=== PATIENT | female | born 1970 | race Caucasian/White ===

== ENCOUNTER → 2023-11-14 13:26 | Outpatient (REF) | payer MEDICARE, SELFPAY | LOC: HWRAD 13:26 | PROVIDERS: ATTENDING PHYSICIAN Internal Medicine | DX: E04.2 Nontoxic multinodular goiter (principal) | CPT/HCPCS: 76536 ==

== ENCOUNTER → 2023-12-05 13:08 | Outpatient (REF) | payer MEDICARE, SELFPAY ==
[2023-12-05 13:49] VITALS: BP 118/84; BP_SYST 88
== END ==
LOC: RADI 13:08
PROVIDERS: ATTENDING PHYSICIAN Internal Medicine
DX: E04.1 Nontoxic single thyroid nodule (principal)
CPT/HCPCS: 88173; 10005

== ENCOUNTER → 2024-08-19 08:58 | Outpatient (REF) | payer MEDICARE, SELFPAY | LOC: HWRAD 08:58 | PROVIDERS: ATTENDING PHYSICIAN Internal Medicine Gastroenterology; FAMILY PHYSICIAN Internal Medicine | DX: E66.01 Morbid (severe) obesity due to excess calories (principal) | CPT/HCPCS: 76700 ==

== ENCOUNTER 2024-08-22 06:27 | Day surgery (SDC) | payer MEDICARE, SELFPAY ==
[2024-08-22 11:20] VITALS: BMI 50.8
[2024-08-22 11:21] VITALS: BMI 50.8
[2024-08-22 11:35] VITALS: BP 106/73
[2024-08-22 13:42] VITALS: BP 108/76
== END 2024-08-22 14:11 | disposition home or self-care (01) ==
LOC: GI 06:27
PROVIDERS: ATTENDING PHYSICIAN Internal Medicine Gastroenterology
DX: Z12.11 Encounter for screening for malignant neoplasm of colon (principal); K57.30 Diverticulosis of large intestine without perforation or abscess without bleeding; Z80.0 Family history of malignant neoplasm of digestive organs; K64.0 First degree hemorrhoids; D12.2 Benign neoplasm of ascending colon; D12.3 Benign neoplasm of transverse colon
CPT/HCPCS: 45385; 45380; 88305

== ENCOUNTER → 2024-12-08 09:16 | Outpatient (REF) | payer MEDICARE, SELFPAY ==
[2024-12-08 10:18] LABS: % Basophils 0.9 % (0-2); % Eosinophils 3.3 % (0-6); % Immature Granulocytes 0.5 % (0-0.5); % Lymphocytes 29.7 % (20.5-51.1); % Monocytes 6.3 % (1.7-9.3); % Neutrophils 59.3 % (42.2-75.2); Absolute Basophils 0.1 10^3/uL (0-0.2); Absolute Eosinophils 0.3 10^3/uL (0-0.7); Absolute Lymphocytes 2.3 10^3/uL (1.2-3.4); Absolute Monocytes 0.5 10^3/uL (0.1-0.6); Absolute Neutrophils 4.5 10^3/uL (1.4-6.5); Hematocrit 38.7 % (37.0-47.0); Hemoglobin 11.6 g/dL (12.0-16.0); Mean Corpuscular Volume 80.1 fL (81.0-99.0); Mean Platelet Volume 9.7 fL (7.4-10.4); Nucleated Red Blood Cells % 0 %; Platelet Count 362 10^3/uL (130-400); Red Blood Cell Count 4.83 10^6/uL (4.20-5.40); Red Cell Dist. Width 16.7 % (11.5-14.5); White Blood Cell Count 7.6 10^3/uL (4.8-10.8)
[2024-12-08 11:00] LABS: ALT (SGPT) 25 U/L (0-35); AST (SGOT) 26 U/L (14-36); Albumin 4.1 g/dl (3.5-5.0); Alkaline Phosphatase 93 U/L (38-126); Blood Urea Nitrogen 19 mg/dl (7-17); Calcium 10.1 mg/dl (8.4-10.2); Carbon Dioxide 25 mmol/L (22-30); Chloride 102 mmol/L (98-107); Direct Bilirubin 0.2 mg/dl (0.0-0.4); Glucose 100 mg/dl (70-99); HDL Cholesterol 61 mg/dl; Iron 54 ug/dl (37-170); LDL Cholesterol, Calculated 113 mg/dl; Potassium 4.3 mmol/L (3.5-5.1); Sodium 137 mmol/L (135-145); Total Bilirubin 0.7 mg/dl (0.2-1.3); Total Cholesterol 198 mg/dl (50-199); Total Protein 6.9 g/dl (6.3-8.2); Triglyceride 120 mg/dl (10-149); Very Low Density Lipoprotein 24 mg/dl (0-30); eGFR 58.97
[2024-12-08 11:06] LABS: IgA 231 mg/dl (70-400); IgG 893 mg/dl (700-1600); IgM 131 mg/dl (40-230)
[2024-12-08 11:13] LABS: Percent Saturation 14 % (20-50); Total Iron Binding Capacity 375 ug/dl (265-497)
[2024-12-08 11:33] LABS: Ferritin 8.3 ng/ml (11.1-264.0)
[2024-12-08 21:44] LABS: Hepatitis A Antibody, Total Negative (Negative); Hepatitis B Core Ab, Total Negative (Negative); Hepatitis C Antibody Negative (Negative)
[2024-12-09 00:48] LABS: Hepatitis B Surface Antibody Negative
[2024-12-09 18:42] LABS: Alpha-1-Antitrypsin 172 mg/dL (90-200); Ceruloplasmin 32 mg/dL (16-45)
[2024-12-09 22:24] LABS: LKM-1 Ab (IgG) 0.7 U (0.0-24.9)
[2024-12-10 02:43] LABS: Mitochondrial M2 Ab, IgG 5.7 Units (0.0-24.9)
[2024-12-10 02:46] LABS: ANA, IgG Reflex to HEp-2 None Detected (None Detected)
[2024-12-10 11:22] LABS: F-Actin Antibody IgG 3 Units (0-19)
[2024-12-11 08:26] LABS: tTG IgA Antibody <1.02 FLU (0.00-4.99)
== END ==
LOC: REG 09:16
PROVIDERS: ATTENDING PHYSICIAN Internal Medicine Gastroenterology; FAMILY PHYSICIAN Internal Medicine
DX: R53.83 Other fatigue (principal); Z00.00 Encounter for general adult medical examination without abnormal findings; E78.5 Hyperlipidemia, unspecified; K76.0 Fatty (change of) liver, not elsewhere classified
CPT/HCPCS: 36415; 80053; 80061; 82103; 82248; 82390; 82728; 82784; 83540; 83550; 84443; 85025; 86015; 86038; 86364; 86376; 86381; 86704; 86706; 86708; 86803

== ENCOUNTER 2024-12-24 06:19 | Day surgery (SDC) | payer MEDICARE, SELFPAY ==
[2024-12-24 13:50] VITALS: BMI 52.4
[2024-12-24 13:55] VITALS: BP 118/61
[2024-12-24 14:12] VITALS: BMI 52.4
[2024-12-24 15:57] VITALS: BP 110/90
[2024-12-24 16:00] VITALS: BP 108/87
[2024-12-24 16:15] VITALS: BP 105/73
[2024-12-24 16:25] VITALS: BP 123/79
== END 2024-12-24 16:50 | disposition home or self-care (01) ==
LOC: SDS 06:19
PROVIDERS: ATTENDING PHYSICIAN Internal Medicine Gastroenterology
DX: K29.70 Gastritis, unspecified, without bleeding (principal); D50.0 Iron deficiency anemia secondary to blood loss (chronic); K44.9 Diaphragmatic hernia without obstruction or gangrene; K31.7 Polyp of stomach and duodenum
CPT/HCPCS: 43239; 88305; 88342

== ENCOUNTER → 2025-05-21 08:45 | Outpatient (REF) | payer MEDICARE, SELFPAY ==
[2025-05-21 09:16] LABS: Hematocrit 43.0 % (37.0-47.0); Hemoglobin 13.4 g/dL (12.0-16.0); Mean Corp Hgb Conc. 31.2 g/dL (33.0-37.0); Mean Corpuscular Volume 81.3 fL (81.0-99.0); Nucleated Red Blood Cells % 0 %; Platelet Count 302 10^3/uL (130-400); Red Cell Dist. Width 15.7 % (11.5-14.5)
[2025-05-21 10:16] LABS: Iron 52 ug/dl (37-170)
[2025-05-21 10:25] LABS: Total Iron Binding Capacity 362 ug/dl (265-497)
[2025-05-21 11:48] LABS: Ferritin 14.0 ng/ml (11.1-264.0)
== END ==
LOC: REG 08:45
PROVIDERS: FAMILY PHYSICIAN Internal Medicine
DX: D50.9 Iron deficiency anemia, unspecified (principal)
CPT/HCPCS: 36415; 82728; 83540; 83550; 85025

== ENCOUNTER 2025-06-07 22:19 | Emergency (ER) | payer MEDICARE, SELFPAY ==
[2025-06-07 22:22] VITALS: BP 135/91
[2025-06-07 22:56] LABS: COVID-19 Antigen Negative (Negative)
[2025-06-08 01:14] VITALS: BP 110/74
[2025-06-08 01:28] VITALS: BMI 53.3
[2025-06-08 02:00] VITALS: BP 122/63
--- NOTE | 2025-06-08 02:00 | ED.GENMED ---
History of Present Illness
General
Chief Complaint: Breathing Problem
Source: patient
Exam Limitations: none
Time Seen by Provider: 06/08/25 01:51
History of Present Illness
History of Present Illness:
See MDM
Past History
Past History
ED Past Medical History: Asthma, HTN and Other (Migraines, seasonal allergies)
ED Past Surgical History: Tonsilectomy
Social History
Tobacco: Non-smoker
Alcohol: Occasional
Drug: None
Personal: Single
Living: with family
Employment: Disabled
Family History
Family History: Other
Phy Exam
Physical Exam
Physical Exam:
See MDM
Scores
Heart Failure Risk
Heart Failure Risk Score: Not Applicable
Course
Orders/Labs/Results
Orders:
Orders
06/07/25 22:24
Electrocardiogram (*1) Urgent
Reason for Study: Shortness of Breath
06/07/25 22:25
EKG- Treatment ONCE
CR Chest - 2 Views Urgent
Comment:
Reason For Exam: shortness of breath
06/07/25 22:32
COVID-19 Antigen Urgent
Source: Nasal Swab
Influenza A+B Rapid Molecular Urgent
MAXIMO Source: Nasal Swab
Specimen Description:
06/08/25 01:58
Dexamethasone Pf [Decadron] 10 mg PO NOW STA
Ipratropium/Albuterol Sulfate [Duoneb] 3 ml INH R NOW STA
Vital Signs
Initial and Last Documented VS:
Initial Vital Signs
Temp Pulse Resp BP Pulse Ox
98.2 F 97 16 135/91 97
06/07/25 22:22 06/07/25 22:22 06/07/25 22:22 06/07/25 22:22 06/07/25 22:22
Last Documented Vital Signs
Temp Pulse Resp BP Pulse Ox
98.2 F 88 20 110/74 98
06/07/25 22:22 06/08/25 02:02 06/08/25 02:02 06/08/25 01:14 06/08/25 02:02
MDM/Problems Addressed
Differential Diagnosis Includes:
Note:
CHIEF COMPLAINT(S)
Shortness of breath.
HISTORY OF PRESENT ILLNESS
The patient is a 54-year-old female with a noted history of asthma, presenting with a recent exacerbation of her symptoms characterized by shortness of breath. This exacerbation has occurred over the past week and a half, during which she has needed
to use her inhaler more frequently. The patient reports that typically, she can go a week without using her inhaler, but lately, she has been reliant on it. She describes a sensation where she can inhale without issue, but exhalation is prolonged,
which aligns with typical asthma symptoms. The patient has not experienced any recent travels or leg pain, ruling out deep vein thrombosis as a potential cause. She confirms the absence of significant wheezing but acknowledges a persistent cough
without productive sputum. While the patients heart was evaluated through an electrocardiogram, which appeared normal, and a chest X-ray was also reported as normal, contributing to the exclusion of acute cardiac or pulmonary issues.
The ER examination revealed minimal wheezing, but suspicion is retained for asthma with the primary observation pointing to prolonged expiration. The patient will receive a dose of Decadron, to manage the inflammation and swelling associated with
asthma.
The patient also mentioned a past correlation between her migraine medication and the exacerbation of asthma-like symptoms.
MEDICATIONS
The patient reports taking medications inclusive of an inhaler for asthma management and medications for migraines.
REVIEW OF SYSTEMS
- Respiratory: Shortness of breath, prolonged exhalation, episodic wheezing.
- Neurological: History of migraines.
PHYSICAL EXAM
General: Alert, no acute distress.
Skin: Warm, dry.
Head: Normocephalic, atraumatic
Neck: Appears supple, trachea midline.
Eyes, Ears, Nose, Mouth, and Throat: Oral mucosa moist.
Cardiovascular: No signs of cyanosis
Respiratory: Respirations are non-labored. Prolonged expiratory phase
Abdomen: Non-distended
Musculoskeletal: No deformities. Nonpitting chronic appearing edema to bilateral legs. No tenderness to deep venous palpation
Neurological: No focal neurological deficit observed.
Psychiatric: Cooperative, appropriate mood and affect.
PROBLEM LIST
- Acute asthma exacerbation.
- Migraine history.
PLAN
1. Administer Duoneb treatment, consisting of Albuterol and Ipratropium, to address airway inflammation and mucus production.
2. Initiate a dose of Decadron today to manage acute exacerbation, followed by a steroid taper, starting with continued steroid treatment beginning tomorrow.
3. Discuss dietary modifications focusing on a Mediterranean diet to aid in overall health improvement as per patient�s comment on dietary advice.
4. Follow up with monitoring and adjust the tapering schedule based on patient response, with flexibility to modify the steroid taper regimen per patient tolerance and symptom improvement.
DIFFERENTIAL DIAGNOSIS
The Differential Diagnosis includes, in no particular order and is not limited to:
- Asthma exacerbation
- Allergic bronchospasm
- Chronic obstructive pulmonary disease (COPD)
- Pulmonary embolism
- Viral respiratory infection
- Congestive heart failure
- Gastroesophageal reflux disease
- Panic disorder
- Bronchitis
- Pneumonia
Disposition:
SUMMARY OF ENCOUNTER
The patient, a 54-year-old female with a history of asthma, presents with shortness of breath, indicative of an asthma exacerbation. She reports prolonged expiratory effort, though maintains good inspiratory effort. There are no clinical signs of
deep vein thrombosis or pulmonary embolism. She is neither tachycardic nor hypoxic. An electrocardiogram and chest x-ray were conducted and yielded normal results. The patient was administered treatment to address airway inflammation and will
continue managing her condition with a steroid taper. She is comfortable with outpatient management and has been advised to follow up with her primary care doctor.
PLAN
Administer a steroid taper to the patient starting today to manage acute asthma exacerbation. The patient is advised to follow up with her primary care physician for further evaluation and management.
INDEPENDENT REVIEW OF LABS AND INTERPRETATION OF TESTS
- My independent review of the EKG indicates normal cardiac function.
- My independent interpretation of the chest x-ray reveals no acute pulmonary issues.
MEDICATION RECONCILIATION
During the visit, the treatment included a steroid taper plan to manage the asthma exacerbation.
MEDICAL DECISION MAKING
- Number and Complexity of Problems Addressed: Chronic conditions affecting care include asthma exacerbation. Differential diagnosis considered asthma exacerbation, allergic bronchospasm, COPD, pulmonary embolism, viral respiratory infection,
congestive heart failure, gastroesophageal reflux disease, panic disorder, bronchitis, pneumonia.
- Data:
Category 1:
My independent interpretation of the EKG and chest x-ray indicates normal findings.
- Risk:
Consideration of Admission/Observation: Escalation of care including admission/observation was considered given the complexity and risk of the patients presenting complaint, exam findings, and her underlying comorbidities. However, ultimately I feel
the patient is safe for outpatient management with close follow up. Reasoning: Work-up is reassuring, does not reveal any acute life/organ threatening processes, patients symptoms well controlled upon reevaluation, reexamination is reassuring,
vitals are stable, patient agreeable with discharge, reliable for follow-up.
DIAGNOSIS
- Asthma exacerbation, unspecified (ICD-10: J45.901)
*Pulse Oximetry
SaO2: 98
Oxygen Mode of Delivery: Room air
Patient hypoxic: no
*Critical Care Note
Total Time (30-74mins, 75-104mins- exclusive of procedures): Not Applicable
ED Attending Note
-
Portions of this chart may have been created with voice recognition software.� Occasional wrong word or��sound alike� substitutions may have occurred due to the inherent limitations of voice recognition software.
Discharge Plan
Departure
Patient Disposition: Home (Routine Discharge)
Date of Disposition: 06/08/25
Time of Disposition: 02:06
Patient with high blood pressure during this ER visit?: No
Discharge Problem:
Asthma attack
Instructions: Asthma, Adult (DC)
Prescriptions:
New
prednisone 10 mg tablet
See Rx Instructions .ROUTE .COMPLEX Qty: 45 0RF
Rx Instructions:
5 tabs day 1-3, 4 tabs day 4-6, 3 tabs day 7-9, 2 tabs day 10-12, 1 tab day 13-15
No Action
methocarbamol 500 MG tablet
500 mg PO QIDPRN PRN (Reason: migraines)
prochlorperazine maleate 10 MG tablet
10 mg PO TIDPRN PRN (Reason: nausea, migraines)
diclofenac sodium 75 MG tablet,delayed release (DR/EC)
75 mg PO BIDPRN PRN (Reason: migraines)
albuterol sulfate [Ventolin HFA] 90 MCG/PUFF HFA aerosol inhaler
2 puff inhalation PRN PRN (Reason: sob)
candesartan 16 MG tablet
16 mg PO DAILY
montelukast 10 MG tablet
10 mg PO HS
olanzapine 10 MG tablet
10 mg PO BIDPRN PRN (Reason: migraines)
fexofenadine [Salma] 180 MG tablet
180 mg PO DAILY PRN (Reason: allergy)
cholecalciferol (vitamin D3) [Vitamin D3] 400 UNITS tablet
400 units PO HS
omeprazole magnesium 20 MG capsule,delayed release(DR/EC)
20 mg PO BID
Iron 65 MG Tab
65 mg PO HS
escitalopram oxalate [Lexapro] 20 mg Tablet
20 mg PO DAILY
hydrochlorothiazide 12.5 mg Tablet
12.5 mg PO DAILY
ipratropium-albuterol 0.5 mg-3 mg(2.5 mg base)/3 mL Solution For Nebulization
3 ml INHALATION Q4H PRN (Reason: asthma)
dihydroergotamine 0.5 mg/pump act. (4 mg/mL) Alviso,Non-Aerosol
1 spray INTRANASAL ONCE PRN (Reason: migraines)
Flonase Sensimist 27.5 mcg/actuation Alviso,Suspension
2 spray INTRANASAL DAILY
fluticasone furoate-vilanterol [Breo Ellipta] 200-25 mcg/dose Blister With Device
1 inh INHALATION DAILY
Aimovig Autoinjector 140 mg/mL Auto-Injector
140 mg SC QMONTH
Reyvow 50 mg Tablet
50 mg PO ONCE PRN (Reason: migraines)
Nurtec ODT 75 mg Tablet,Disintegrating
75 mg PO ONCE PRN (Reason: migraines)
Sutab 1.479-0.188- 0.225 gram Tablet
0 tab PO PER PKG DIR
lorazepam [Ativan] 0.5 mg Tablet
0.5 mg PO DAILY PRN (Reason: anxiety)
Activity Restrictions/Additional Instructions:
Please return for any worsening symptoms.
You may return at any time if you have further concerns.
Please follow up with your doctor at the first available appointment, preferably this week.
Thank you for choosing [facility].
Interventions
Interventions:
*General Assessment Last Done: 06/08/25 01:28
*Neglect/Abuse Screening Last Done: 06/08/25 01:28
*ED- Fall Risk Assessment Last Done: 06/08/25 01:28
*ED COVID-19 Vaccine History Last Done: 06/08/25 01:28
ED- Cardiac Assessment Last Done: 06/08/25 01:28
ED- Pulmonary Assessment Last Done: 06/08/25 01:28
Discharge Date and Time
Print Language: TAMAZIGHT
[2025-06-08] MEDS: DECADRON 10 MG PO (02:02)
[2025-06-08] MEDS: DUONEB 3 ML INH (02:03)
== END 2025-06-08 02:35 | disposition home or self-care (01) ==
LOC: EMR 22:19
PROVIDERS: EMERGENCY PHYSICIAN Student in an Organized Health Care Education/Training Program; FAMILY PHYSICIAN Internal Medicine
DX: J45.901 Unspecified asthma with (acute) exacerbation (principal); Z11.52 Encounter for screening for COVID-19; I10 Essential (primary) hypertension; G43.909 Migraine, unspecified, not intractable, without status migrainosus; Z88.6 Allergy status to analgesic agent; Z91.040 Latex allergy status; Z91.011 Allergy to milk products; Z88.5 Allergy status to narcotic agent; Z88.0 Allergy status to penicillin; Z88.8 Allergy status to other drugs, medicaments and biological substances; Z91.048 Other nonmedicinal substance allergy status; Z91.030 Bee allergy status
CPT/HCPCS: 99283; 94640; 71046; 87502; 87811; 93005